=== PATIENT | male | born 1980 | race African-American/Black ===

== ENCOUNTER → 2017-03-08 | Outpatient (CLI) | payer OTHER ==
--- NOTE | 2017-03-08 09:27 | KCIC ---
EXAM: Chest, single view. HISTORY: Positive tuberculin skin test. COMPARISON: None. FINDINGS: A frontal view of the chest is obtained. There is no infiltrate, effusion or pneumothorax. The heart is normal in size. IMPRESSION: No acute pulmonary finding or evidence of pulmonary tuberculosis. Electronically signed by: Snow Hassan MD (03/08/2017 9:23 AM) [facility]
== END | disposition home or self-care (01) ==
LOC: KCIC 08:56
PROVIDERS: ATTEND Family Medicine
DX: R76.11 Nonspecific reaction to tuberculin skin test without active tuberculosis (principal)
CPT/HCPCS: 71010